=== PATIENT | female | born 1995 | race Caucasian/White ===

== ENCOUNTER 2017-06-24 06:28 | Day surgery (SDC) | payer BC ==
[2017-06-24] MEDS ORDERED: Ringers Lactate 1,000 ML IV ONE (06:48)
[2017-06-24] MEDS ORDERED: PROPOFOL 200 MG/20 ML VIAL IV ONE (06:52)
[2017-06-24] MEDS ORDERED: ROCURONIUM 50 MG/5 ML VIAL IV ONE (06:52)
[2017-06-24] MEDS ORDERED: MIDAZOLAM HCL 2 MG/2 ML INJ ONE (06:52)
[2017-06-24] MEDS ORDERED: DEXAMETHASONE 10 MG/ML VIAL ONE (06:52)
[2017-06-24] MEDS ORDERED: LIDOCAINE 2% MPF 5 ML VIAL ONE (06:52)
[2017-06-24] MEDS ORDERED: FENTANYL CITR 100 MCG/2 ML ONE (06:53)
[2017-06-24] MEDS ORDERED: OXYMETAZOLINE HCL 0.05% 30ML NAS ONE (06:59)
[2017-06-24] MEDS ORDERED: OFLOXACIN OTIC 0.3%-5 ML BTL ONE (06:59)
[2017-06-24] MEDS: BUPIVACA 0.5%/EPI 0.0005%/PF 10 ML VIAL ONE ×2 (07:54→08:05)
--- NOTE | 2017-06-24 08:11 | P.BOP ---
Preoperative diagnosis: chronic tonsillits, recurrent AOM Postoperative diagnosis: same Primary procedure: T&A Secondary procedure: BMT Electrician Third: NONE,NONE Estimated blood loss: <5ml Specimen: B tonsils Findings: no DESHAWN, atrophic TMs Anesthesia: General Complications: None Implants: Pap I tubes Fluids & blood products: crystalloid 500ml Transferred to: Recovery Room Condition: Good
[2017-06-24] MEDS: MEPERIDINE HCL 25 MG/0.5 ML ONE ×4 (08:36→08:54)
[2017-06-24] MEDS ORDERED: ONDANSETRON 4 MG/2 ML VIAL ONE (08:37)
[2017-06-24] MEDS ORDERED: KETOROLAC 30 MG/ML INJ ONE (08:42)
[2017-06-24] MEDS ORDERED: HYDROCOD 2.5mg-ACETAMIN 108mg/5mL Soln ONE (09:40)
--- NOTE | 2017-06-24 20:45 | OP ---
Date of Procedure: 06/24/2017 Surgeon: Kenzie Pina MD Preoperative Diagnoses: Recurrent acute tonsillitis, recurrent right acute otitis media without spontaneous tympanic membrane rupture. Postoperative Diagnoses: Recurrent acute tonsillitis, recurrent right acute otitis media without spontaneous tympanic membrane rupture with chronic tonsillitis and tonsillar crypts. Procedure: Bilateral myringotomy and tympanostomy tube placement; adenotonsillectomy. Details Of Operations: The patient was brought to the operating room and placed under general anesthesia via endotracheal tube. The left ear was visualized under the operating microscope. A speculum aided visualization. Cerumen was removed from the canal using a wire curette. A myringotomy incision was made in the anterior-inferior quadrant and no fluid was aspirated from the middle ear space. A Paparella type 1 tube was positioned across the incision using the alligator and pick. Floxin drops were instilled and a cotton ball placed at the meatus. A similar procedure was performed on the right side. Cerumen was removed from the canal using a wire curette. A myringotomy incision was made in the anterior -inferior quadrant and no fluid was aspirated from the middle ear space. A Paparella type 1 tube was positioned across the incision using the alligator and pick. Floxin drops were instilled and a cotton ball placed at the meatus. The head of the bed was turned 90 degrees. A shoulder roll was placed and the neck extended. A head drape was applied. The McIvor mouth gag was placed and suspended from the Sutherland stand. The oxygen concentrate was confirmed with the flight technician and was less than 40%. Dexamethasone was administered by the flight technician. The soft palate was palpated and there was no submucous cleft. A red rubber catheter was placed in the nose and secured to retract the soft palate. The tonsils were noted to be medium with significant submucosal component and chronically inflamed with deep crypts. The left tonsil was grasped with a straight Allis clamp. Bovie electrocautery was used to incise the mucosa over the anterior pillar and identify the tonsillar capsule. The tonsil was dissected using cautery and blunt dissection until free from soft tissue attachments. A tonsil ball was placed to aid hemostasis. The right tonsil was removed in a similar manner. A laryngeal mirror was used to visualize the nasopharynx. The adenoid size was small and chronically inflamed. The adenoids were removed using suction cautery. Hemostasis was achieved using packing and cautery as needed. Blood loss was minimal. All packing was removed. The tonsillar fossae were injected with 0.5% Marcaine with epinephrine. A total of 3 mL was used. A Booker sump orogastric tube was used to decompress the stomach. The red rubber catheter was removed and used to suction the nasopharynx and nasal cavity. The mouth gag was removed; there was no evidence of injury to the lips , teeth or tongue. The mandible was mobile. The patient was then awakened from anesthesia, extubated in the operating room and taken to the recovery room in stable condition. BROOKS Voice ID: [id number] Report ID: [id number]
== END 2017-06-24 09:55 | disposition home or self-care (01) ==
LOC: OR 06:28
PROVIDERS: ATTEND Otolaryngology
PROC: 0CTPXZZ Resection of Tonsils, External Approach (ICD-10-PCS; 2017-06-24)
PROC: 0CTQXZZ Resection of Adenoids, External Approach (ICD-10-PCS; 2017-06-24)
PROC: 099670Z Drainage of Left Middle Ear with Drainage Device, Via Natural or Artificial Opening (ICD-10-PCS; principal; 2017-06-24 07:30)
PROC: 099570Z Drainage of Right Middle Ear with Drainage Device, Via Natural or Artificial Opening (ICD-10-PCS; 2017-06-24 07:30)
DX: J03.91 Acute recurrent tonsillitis, unspecified (principal); H66.91 Otitis media, unspecified, right ear; J35.01 Chronic tonsillitis
CPT/HCPCS: 81025; 88304; 88305; J1100; J2175; J2250; J2405; J3010